=== PATIENT | female | born 1970 ===

== ENCOUNTER 2023-04-05 06:00 | Day surgery (SDC) | payer OTHER ==
[2023-03-30 11:55] LABS: INR 0.96; PARTIAL THROMBOPLASTIN TIME 25.7 SECONDS (22.0-34.0); PROTHROMBIN TIME 10.1 SECONDS (9.0-11.5)
[~2023-04-05] VITALS: Ht 165.1 cm; Wt 72.6 kg
[~2023-04-05 06:00] MED LIST: LIPITOR40 MG PO; LOSARTAN POTASS50 MG PO; SYNTHROID150 MCG PO; VITAMIN D310 MCG/1 M PO
[2023-04-05] MEDS ORDERED: OXYC1TAB9 PO (09:01)
== END 2023-04-05 15:30 | disposition home or self-care (01) ==
LOC: CIR.AMB 06:00
PROVIDERS: ATTEND Surgery
DX: K62.5 Hemorrhage of anus and rectum (principal); K64.8 Other hemorrhoids; K64.4 Residual hemorrhoidal skin tags; Z88.8 Allergy status to other drugs, medicaments and biological substances; Z20.822 Contact with and (suspected) exposure to COVID-19